=== PATIENT | male | born 2000 | race Caucasian/White ===

== ENCOUNTER 2022-08-19 16:48 | Emergency (ER) | payer OTHER ==
[2022-08-19] MEDS ORDERED: Lidocaine 1% 10 ML MDV INJECT ONE (17:06)
== END 2022-08-19 18:10 | disposition home or self-care (01) ==
LOC: JD.ED 16:48
DX: S01.511A Laceration without foreign body of lip, initial encounter (principal); W21.11XA Struck by baseball bat, initial encounter; Y93.64 Activity, baseball
CPT/HCPCS: 12011; 99283; J3490